=== PATIENT | female | born 1990 ===

== ENCOUNTER → 2019-10-16 | Outpatient (CLI) | payer OTHER ==
[~2019-10-16] MED LIST: 0.9 % SODIUM CHLORIDE 10 ML DISP.SYRIN. ID ONE; CONTRAST GIVEN. MC PRN; GADOTERATE 5 MMOL/10ML VIAL. INT ART ONE; IOHEXOL 300 MG/ML 50 ML VIAL. INT ART ONE; LIDOCAINE 1% Multi-Dose 20 ML VIAL. ID ONE
--- NOTE | 2019-10-16 16:35 | KCIC ---
Examination: MRI right shoulder arthrogram HISTORY: History of recurrent dislocation right shoulder, decreased range of motion, pain COMPARISON: None available TECHNIQUE: Multiplanar, multisequence MR imaging of the right shoulder performed after arthrogram injection. FINDINGS: The long head of the biceps tendon within the bicipital groove. The attachment of the long head the biceps tendon to the superior labral anchor grossly appears intact. The attachment of the subscapularis, supraspinatus tendons grossly appears intact. Minimal undersurface fraying of the infraspinatus tendon. Small cystic changes identified in the posterior lateral humerus head probably small Hill-Sachs deformity. There is blunting of the anterior inferior labrum with mild irregularity likely tear. No obvious bony Bankart identified. IMPRESSION: 1. Blunting and irregularity of the anteroinferior labrum likely tear. 2. Probable small Hill-Sachs deformity in the posterior lateral humerus head. 3. Minimal undersurface fraying infraspinatus tendon. Electronically signed by: Kevin Estrada MD (10/16/2019 4:32 PM) [id number]
--- NOTE | 2019-10-16 16:42 | KCIC ---
EXAM: FLUOROSCOPY GUIDED right SHOULDER ARTHROGRAM History: Shoulder pain TECHNIQUE: Consent: A written, informed consent was obtained from the patient prior to the procedure. The skin was prepped and draped in the usual fashion under aseptic precautions. Dilute 1% lidocaine was used for local anesthesia. Under fluoroscopic guidance a 22 gauge long spinal needle was used to access the shoulder joint. A 12 cc mixture of 5 cc of Omnipaque, 5 cc lidocaine, 10 cc of saline and 0.1 cc of Doteram was injected. The patient was transferred to the MRI suite. 33 seconds of total fluoroscopy time was utilized. Total fluoroscopic images 1. No immediate complications. IMPRESSION: Technically successful right shoulder arthrogram. Electronically signed by: Kevin Estrada MD (10/16/2019 4:39 PM) [id number]
== END | disposition home or self-care (01) ==
LOC: KCIC 14:06
PROVIDERS: ATTEND Orthopaedic Surgery
DX: M24.411 Recurrent dislocation, right shoulder (principal); Z86.73 Personal history of transient ischemic attack (TIA), and cerebral infarction without residual deficits
CPT/HCPCS: 73040; 73222; A9575; Q9967